=== PATIENT | female | born 1980 | race Caucasian/White ===

== ENCOUNTER 2018-02-02 15:54 | Inpatient (IN) | payer MEDICAID, OTHER ==
[2018-02-02] VITALS (40 sets, daily range): BP systolic 139–184; BP diastolic 87–115; PULSE 68–81; RESP 16–18; TEMP 97.7; O2SAT 98–100
[~2018-02-02 15:54] MED LIST: OXYC-360 PO; PREN0.01 PO
[2018-02-02] MEDS ORDERED: LABETALOL HCL 100 MG/20 ML VIAL ONE (16:35)
[2018-02-02] MEDS: LACTATED RINGER'S 1000 ML INJ 1,000 ML IV SCH (16:42)
[2018-02-02] MEDS ORDERED: CALCIUM GLUCONATE 10% 1 GM/10 ML VIAL IV PUSH PRN (16:45)
[2018-02-02] MEDS: BETAMETHASONE SOD PHOS/ACETATE SUSP 30 MG/5 ML VIAL IM SCH ×2 (16:45→17:50)
[2018-02-02] MEDS ORDERED: LABETALOL HCL 100 MG/20 ML VIAL IV PUSH PRN ×3 (16:45→17:15)
[2018-02-02] MEDS ORDERED: ONDANSETRON HCL 4 MG/2 ML VIAL IV ONE (16:45)
[2018-02-02] MEDS ORDERED: ACETAMINOPHEN 325 MG TAB PO ONE (16:45)
[2018-02-02] MEDS ORDERED: ZOLPIDEM TARTRATE 5 MG TAB PO PRN (16:45)
[2018-02-02] MEDS ORDERED: ONDANSETRON ODT 4 MG TAB PO PRN (16:45)
[2018-02-02] MEDS ORDERED: MAGNESIUM SULFATE 4 GM PREMIX 100 ML IV ONE (16:45)
[2018-02-02] MEDS ORDERED: SODIUM CHLORIDE 0.9% FLUSH 10 ML FLUSH IV FLUSH PRN ×2 (16:45)
[2018-02-02] MEDS ORDERED: LABETALOL HCL 200 MG TAB PO SCH (17:00)
--- NOTE | 2018-02-02 17:02 | PD ---
HPI Chief Complaint Sent here from the office Date Seen: February 02, 2018 Time Seen: 16:57 Travel History International Travel<30 Days: No Contact w/Intl Traveler<30Days: No Known Affected Area: No History of Present Illness HPI Patient is a 37-year-old who is at 27 weeks gestation who comes here after a phone call from the office communicated and abnormal lab results that she had drawn on Monday. Patient gives a history of a first that was affected with IUGR and preeclampsia resulting in a section. Second was fairly uncomplicated except for an undefined history of a possible TIA however patient was never placed on blood thinners or Lovenox and does not remember getting an MRI or CT scan of the head. Patient has had an uncomplicated except for hypertension that began approximately 1-1/2 weeks ago it was initially detected at her work with a blood pressure of 142/96 and then a visit to the office where her blood pressure improved but was given blood work to complete. Patient states she has had a headache on and off but nothing consistent and denies abdominal pain vaginal discharge vaginal bleeding or contractions. Weeks Gestation: 27 Para: 2 : 3 Last Menstrual Period: February 02, 2018 (May 04, 2018) History Past Medical History Narrative Medical See HPI Obstetric History Obstetric History section 2 Past Surgical History Narrative Surgical section Family History Family History: Negative Social History Narrative Social History Works as a teacher private Alcohol Use: No Tobacco Use: No Substance Abuse: No Allergies-Medications (Allergen,Severity, Reaction): Coded Allergies: Sulfa (Sulfonamide Antibiotics) (Unverified Allergy, Severe, MIGRAINES, ) Home Meds Reported Medications Oxycodone/Acetaminophen (Percocet) 5 Mg/325 Mg Tab, 1 TAB PO Q4H Y, #30 TAB FOR PAIN 09/15/ Multivit/Min/Fol Ac/Iron/Pren ( Vit ( Plus)) Tab, 1 TAB PO DAILY 02/09/10 Review of Systems Except as stated in HPI: all other systems reviewed are Neg Physical Exam Vital Signs Date Time Temp Pulse Resp B/P (MAP) Pulse Ox O2 Delivery O2 Flow Rate FiO2 02/02/18 16:45 97.7 02/02/18 16:35 75 184/115 (138) Narrative GENERAL: Well-nourished, well-developed patient. SKIN: Warm and dry. HEAD: Normocephalic and atraumatic. EYES: No scleral icterus. No injection or drainage. ENT: No nasal drainage noted. Mucous membranes pink. Airway patent. NECK: Supple, trachea midline. No JVD. CARDIOVASCULAR: Regular rate and rhythm without murmurs, gallops, or rubs. RESPIRATORY: Breath sounds equal bilaterally. No accessory muscle use. ABDOMEN/GI: Abdomen soft, non-tender, bowel sounds present, no rebound, no guarding Gravid to [-26] weeks size Fundal Height: [-] GENITOURINARY: Deferred External Genitalia: intact and normal in appearance BUS glands: [-] Cervix: [-] Dilatation: [-] Effacement: [-] Station: [-] Presentation: [-] Membranes: [intact or ruptured] Uterine Contractions: [-] FHT's: Category: [-] 1 Baseline: [-] 140 Reactive: [-] Moderate Variability: [-] Moderate Decels: [-] Absent EXTREMITIES: No cyanosis or edema. BACK: Nontender without obvious deformity. No CVA tenderness. NEUROLOGICAL: Awake and alert. Motor and sensory grossly within normal limits. Five out of 5 muscle strength in all muscle groups. Normal speech. Data Data Vital Signs Reviewed: Yes Orders Orders Labetalol Inj (Trandate Inj) (02/02/18 16:35) Vital Signs (Adult) .ON ADMISSION (02/02/18 16:36) ^ Labor Status (02/02/18 16:36) ^ Non Stress Test (02/02/18 16:36) Cbc No Diff, Includes Plts (02/02/18 16:36) Comprehensive Metabolic Panel (02/02/18 16:36) Uric Acid (02/02/18 16:36) Betamethasone Inj ([place]elestone Soluspan In (02/02/18 16:45) Acetaminophen (Tylenol) (02/02/18 16:45) Ondansetron Inj (Zofran Inj) (02/02/18 16:45) Us Ob Bpp Wo Nst (02/02/18 16:36) Drug Screen, Random Urine (02/02/18 16:36) Protein Creat Ratio, Random Ur (02/02/18 16:36) Intake + Output Q1H (02/02/18 16:42) Notify Parameters (02/02/18 16:42) Heart CONTINUOUS (02/02/18 16:42) Urinary Catheter Management CALISTA.Q8H (02/02/18 16:42) ^ Check Deep Tendon Reflexes Q1H (02/02/18 16:42) Diet Npo (02/02/18 Dinner) Lactated Ringer's 1000 Ml Inj (Lr 1000 M (02/02/18 16:42) Sodium Chloride 0.9% Flush (Ns Flush) (02/02/18 16:45) Sodium Chloride 0.9% Flush (Ns Flush) (02/02/18 21:00) Magnesium Sulfate 40 Gm Premix (Magnesiu (02/02/18 16:42) Labetalol Inj (Trandate Inj) (02/02/18 16:45) Labetalol Inj (Trandate Inj) (02/02/18 17:00) Labetalol Inj (Trandate Inj) (02/02/18 17:15) Calcium Gluconate Inj (Calcium Gluconate (02/02/18 16:45) Magnesium Sulfate 4 Gm Premix (Magnesium (02/02/18 16:45) Ob (2e) Additional Admit Info (02/02/18 16:54) [facility] Medical Record Reviewed: Yes Plan 37-year-old who is at 27 weeks gestation with hypertension and Blood work was ordered, ultrasound for EFW Labetalol 20 mg IV was given as well as magnesium sulfate 4 g and then 2 g/h Admission for workup of hypertension Diagnosis Diagnosis: Primary Impression: 27 weeks gestation of Additional Impressions: Hypertension affecting in second trimester History of pre-eclampsia in prior , currently in second trimester History of intrauterine growth restriction in prior , currently in second trimester Bee Guajardo MD February 02, 2018 17:02
[2018-02-02] MEDS: MAGNESIUM SULFATE 40 GM PREMIX 1,000 ML IV SCH (17:03)
[2018-02-02 17:04] LABS: HEMATOCRIT 32.7 % (35.0-46.0); HEMOGLOBIN 10.9 GM/DL (11.6-15.3); MEAN CELL VOLUME 81.9 FL (80.0-100.0); MEAN CORPUSCULAR HEMOGLOBIN 27.5 PG (27.0-34.0); MEAN CORPUSCULAR HGB CONC 33.5 % (32.0-36.0); MEAN PLATELET VOLUME 9.4 FL (7.0-11.0); PLATELET COUNT 202 TH/MM3 (150-450); RED BLOOD COUNT 3.99 MIL/MM3 (4.00-5.30); RED CELL DISTRIBUTION WIDTH 15.3 % (11.6-17.2)
[2018-02-02 17:33] LABS: ALBUMIN 2.9 GM/DL (3.4-5.0); ALT (GPT) 24 U/L (10-53); AST (GOT) 21 U/L (15-37); BICARBONATE 20.3 MEQ/L (21.0-32.0); BLOOD UREA NITROGEN 10 MG/DL (7-18); CALCIUM 8.8 MG/DL (8.5-10.1); CHLORIDE 105 MEQ/L (98-107); CREATININE 0.64 MG/DL (0.50-1.00); GLOMERULAR FILTRATION RATE 105 ML/MIN (>89); GLUCOSE,RANDOM 70 MG/DL (74-106); SODIUM (NA) 136 MEQ/L (136-145)
[2018-02-02 17:36] LABS: ALKALINE PHOSPHATASE 76 U/L (45-117); TOTAL BILIRUBIN ADULT 0.2 MG/DL (0.2-1.0); TOTAL PROTEIN 6.8 GM/DL (6.4-8.2)
[2018-02-02] MEDS: LABETALOL HCL 200 MG TAB PO SCH (17:50)
--- NOTE | 2018-02-02 18:52 | HHI.PR ---
SENIOR ACCOUNT MANAGER Note Note -Background information: Patient presented as a triage for reportedly elevated blood pressures at home, she had severe range blood pressures, hypertensive protocol was activated by the OB hospitalist, patient received IV labetalol prior to my assessment. S: Patient feeling better, denies headache, visual changes, epigastric pain or right upper quadrant pain. Denies contractions, leakage of fluid, endorses movement. O: VS: BP current: 153/93. BP range since presentation: 151-172/92-107 Exam: deferred Lungs clear to auscultation bilaterally Heart regular rate and rhythm Extremities: 1+ edema bilaterally, no clonus, DTRs 1-2+. FHTs: 120s, moderate variability, accelerations, no decelerations TOCO: No contractions A/P 37 yo at 27w0d by L (JAYSON 05/04/18) admitted for preeclampsia with severe features 1. IUP: Category 1 tracing, continuous monitoring while on mag, likely stable for BID after. -Cephalic by ultrasound, GBS pending. - EFW today (02/02/18) = 853g (7.4%) AC 8.2%, 04/25 BPP, UA dop WNL, Fundal, post left placenta. VELMA 13cm, Cephalic. - Needs 1 hour completed after BMZ effect - s/p BMZ #1, repeat in 24hrs for FLM. - FOB named Yossi. 2. Preeclampsia with severe features: Based on severe range blood pressures and P:C of 23.0. - HELLP labs WNL other than slight anemia, repeat HELLP labs in AM, if stable then 1-2x/week. Started 24hr urine protein, pt has no baseline for comparison - Continue mag x 24hrs for seizure ppx and also for neuroprotection - Strict I/Os - Discussed with patient that my recommendation would be for admission for the duration of her given the severity of her preeclampsia in the early onset for close observation, testing. [place] goal is 34 weeks but discussed with her that this is unlikely, aware of the morbidity associated with prematurity, I have consulted a fitter/welder to further discuss this with the patient. Aware that if patient develops a possible need for delivery earlier than 20 weeks there is a potential she will need to be transferred to a higher level NICU facility. 3. growth restriction: Diagnosed today, likely due to preeclampsia. Will be for once to twice weekly UA Dopplers and testing. Consulted MFM, they will see patient next week 4. Advanced maternal age: NIPS within normal limits normal anatomy 5. History of 2: Patient will be for repeat - 2009: 41w for IUGR and likely preeclampsia from her history - 2013: 39w 6. h/o TIA?: In 2012 around her third trimester had an episode of aphasia and was told she may have had a TIA, was on aspirin following, has not been taking aspirin this . She denies any formal workup Monty Dhillon MD February 02, 2018 18:52
[2018-02-02] MEDS ORDERED: LABETALOL HCL 100 MG/20 ML VIAL IV PRN ×4 (19:00)
[2018-02-02] MEDS: SODIUM CHLORIDE 0.9% FLUSH 10 ML FLUSH IV FLUSH SCH (21:00)
[2018-02-02] MEDS ORDERED: SODIUM CHLORIDE 0.9% FLUSH 10 ML FLUSH IV FLUSH SCH (21:00)
[2018-02-03] VITALS (152 sets, daily range): BP systolic 126–150; BP diastolic 81–97; PULSE 66–92; RESP 16–18; TEMP 97.5–98.2
[2018-02-03] MEDS: LABETALOL HCL 200 MG TAB PO SCH ×2 (05:05→17:03)
[2018-02-03] MEDS: LACTATED RINGER'S 1000 ML INJ 1,000 ML IV SCH ×3 (05:06→18:24)
[2018-02-03] MEDS: ACETAMINOPHEN 325 MG TAB PO PRN ×2 (05:14→13:58)
[2018-02-03 05:56] LABS: AUTOMATED NEUTROPHIL # 10.5 TH/MM3 (1.8-7.7); BASOPHIL % 0.2 % (0.0-2.0); HEMATOCRIT 32.9 % (35.0-46.0); HEMOGLOBIN 10.8 GM/DL (11.6-15.3); LYMPH % 7.9 % (9.0-44.0); LYMPHOCYTE # 0.9 TH/MM3 (1.0-4.8); MEAN CELL VOLUME 83.1 FL (80.0-100.0); MEAN CORPUSCULAR HEMOGLOBIN 27.4 PG (27.0-34.0); MEAN CORPUSCULAR HGB CONC 32.9 % (32.0-36.0); MEAN PLATELET VOLUME 8.9 FL (7.0-11.0); MONO % 1.4 % (0.0-8.0); MONOCYTE # 0.2 TH/MM3 (0-0.9); NEUT % 90.5 % (16.0-70.0); PLATELET COUNT 195 TH/MM3 (150-450); RED BLOOD COUNT 3.96 MIL/MM3 (4.00-5.30); RED CELL DISTRIBUTION WIDTH 15.4 % (11.6-17.2); WHITE BLOOD COUNT 11.6 TH/MM3 (4.0-11.0)
[2018-02-03 06:34] LABS: ALBUMIN 2.6 GM/DL (3.4-5.0); BICARBONATE 18.5 MEQ/L (21.0-32.0); CALCIUM 7.3 MG/DL (8.5-10.1); CALCIUM-PROTEIN CORRECTED 7.6 MG/DL (8.5-10.1); CREATININE 0.65 MG/DL (0.50-1.00); TOTAL BILIRUBIN ADULT 0.2 MG/DL (0.2-1.0); TOTAL PROTEIN 6.5 GM/DL (6.4-8.2)
--- NOTE | 2018-02-03 07:13 | HHI.PR ---
MOTORCYCLE RIDING INSTRUCTOR Note Note S: dong well, slight headache but gets them if she doesnt drink her AM coffee, no visual changes, epigastric pain or right upper quadrant pain. Denies contractions, leakage of fluid, endorses movement. O: VS: BP range since MN: 126-137/82-91 Exam: Lungs clear to auscultation bilaterally Heart regular rate and rhythm Extremities: 1+ edema bilaterally, no clonus, DTRs 1-2+ FHTs: 120s, moderate variability, no accelerations, no decelerations TOCO: No contractions A/P 37 yo at 27w1d by L/8 (JAYSON 05/04/18) admitted for preeclampsia with severe features 1. IUP: Category 1 tracing, continuous monitoring while on mag, BID after. Allow to eat reg diet now - Cephalic by ultrasound on admission - EFW (02/02/18) = 853g (7.4%) AC 8.2%, 04/25 BPP, UA dop WNL, Fundal, post left placenta. VELMA 13cm, Cephalic. - Needs 1 hour completed after BMZ effect - s/p BMZ #1, #2 today for FLM. 2. Preeclampsia with severe features: Based on severe range blood pressures and P:C of 23.0. - BP normotensive and mild range overnight, no IV meds after presentation needed , continue labetalol 200mg BID. - HELLP labs WNL other than slight anemia, stable this AM, repeat on Monday, if stable then 1-2x/week. Started 24hr urine protein, pt has no baseline for comparison - Continue mag x 24hrs for seizure ppx and also for neuroprotection - Strict I/Os (adequate since admission) - Aware of implications of early onset preeclampsia, ideal goal is 34 weeks but discussed with her that this is unlikely, NICU to see her this AM. If patient develops a possible need for delivery earlier than 28 weeks there is a potential she will need to be transferred to a higher level NICU facility. 3. growth restriction: new dx, highly likely due to preeclampsia. Will be for once to twice weekly UA Dopplers and testing. Consulted MFM, they will see patient next week 4. Advanced maternal age: NIPS WNL, normal AU. 5. History of 2: Patient will be for repeat - 2009: 41w for IUGR and likely preeclampsia from her history - 2013: 39w scheduled repeat 6. h/o TIA?: In 2012 around her third trimester had an episode of aphasia and was told she may have had a TIA, was on aspirin following, has not been taking aspirin this . She denies any formal workup or any residual deficits. 7. GBS positive: likely irrelevant as will be for repeat Monty Dhillon MD February 03, 2018 07:13
[2018-02-03] MEDS: SODIUM CHLORIDE 0.9% FLUSH 10 ML FLUSH IV FLUSH SCH ×2 (08:42→21:00)
[2018-02-03] MEDS: MULTIVIT/MIN/PREN/FOL AC/IRON PRENATAL TAB PO SCH (08:42)
[2018-02-03] MEDS: MAGNESIUM SULFATE 40 GM PREMIX 1,000 ML IV SCH (12:40)
[2018-02-03] MEDS: BETAMETHASONE SOD PHOS/ACETATE SUSP 30 MG/5 ML VIAL IM SCH ×2 (16:45→18:12)
[2018-02-03 19:25] LABS: CREATININE 24 HOUR, URINE 1.21 GM/24HR (0.63-2.50)
[2018-02-04 03:19] VITALS: BP 142/92; PULSE 77; RESP 16; TEMP 98.4
[2018-02-04] MEDS: LABETALOL HCL 200 MG TAB PO SCH (05:06)
[2018-02-04] MEDS: MULTIVIT/MIN/PREN/FOL AC/IRON PRENATAL TAB PO SCH (08:19)
[2018-02-04] MEDS: SODIUM CHLORIDE 0.9% FLUSH 10 ML FLUSH IV FLUSH SCH ×2 (08:19→21:00)
--- NOTE | 2018-02-04 10:09 | HHI.PR ---
COMPUTER ENGINEERING PROFESSOR Note Note S: dong well, no WHITE, no visual changes, epigastric pain or right upper quadrant pain. Denies contractions, leakage of fluid, endorses movement. O: VS: BP range since MN: 142-152/90-66914/82-91 Exam: : deferred Lungs clear to auscultation bilaterally Heart regular rate and rhythm Extremities: 1+ edema bilaterally, no clonus, DTRs 1-2+, SCDs on FHTs: 120s, moderate variability, no accelerations, no decelerations TOCO: No contractions A/P 37 yo at 27w2d by L (JAYSON 05/04/18) admitted for preeclampsia with severe features 1. IUP: Category 1 tracing this AM, BID EFM and [place]. - Cephalic by ultrasound on admission - EFW (02/02/18) = 853g (7.4%) AC 8.2%, 04/25 BPP, UA dop WNL, Fundal, post left placenta. VELMA 13cm, Cephalic. - Needs 1 hour completed after BMZ effect - s/p BMZ #2 (02/04), s/p mag for neuroprotection on arrival, will repeat if moving toward delivery. - s/p NICU consult, aware of possible need to transfer if stable and need to delivery at < 28 weeks. 2. Preeclampsia with severe features: Based on severe range blood pressures and 24hr urine = 2082mg (02/04), have no baseline to compare - BP mild range over night, if consistently >150s systolic will increase meds. Continue labetalol 200mg BID. - HELLP labs WNL other than slight anemia, stable on repeat yesterday, repeat on Monday, if stable then 1-2x/week. - Strict I/Os (adequate since admission) 3. growth restriction: new dx, highly likely due to preeclampsia. Will be for once to twice weekly UA Dopplers and testing. Consulted MFM, they will see patient this comming week. 4. Advanced maternal age: NIPS WNL, normal AU. 5. History of 2: Patient will be for repeat - 2009: 41w for IUGR and likely preeclampsia from her history - 2012: 39w scheduled repeat 6. h/o TIA?: In 2012 around her third trimester had an episode of aphasia and was told she may have had a TIA, was on aspirin following, has not been taking aspirin this . She denies any formal workup or any residual deficits. 7. GBS positive: likely irrelevant as will be for repeat . 8. Desires Sterilization: private insurance. Will sign medicaid papers today in case has medicaid as secondary. Monty Dhillon MD February 04, 2018 10:09
--- NOTE | 2018-02-04 16:14 | HHI.PR ---
FOREPART ROUNDER Note Note Pt update: called by nursing pts blood pressures have been in 150s systolic and now 161 over 80-90s, pt asymptomatic, increased her scheduled labetalol to 400mg BID and asked nursing to retime it form 5p to now, recheck BP in 15 min and if severe will treat and likely collect HELLP labs. Monty Dhillon MD February 04, 2018 16:14
[2018-02-04] MEDS ORDERED: NIFEdipine 10 MG CAP PO PRN ×3 (16:30→17:00)
[2018-02-04] MEDS ORDERED: MAGNESIUM SULFATE 40 GM PREMIX 1,000 ML IV SCH (16:51)
[2018-02-04] MEDS ORDERED: CALCIUM GLUCONATE 10% 1 GM/10 ML VIAL IV PUSH PRN (17:00)
[2018-02-04] MEDS ORDERED: MAGNESIUM SULFATE 4 GM PREMIX 100 ML IV ONE (17:00)
[2018-02-04] MEDS ORDERED: SODIUM CHLORIDE 0.9% FLUSH 10 ML FLUSH IV FLUSH PRN (17:00)
[2018-02-04 17:16] LABS: HEMATOCRIT 28.8 % (35.0-46.0); HEMOGLOBIN 9.7 GM/DL (11.6-15.3); MEAN CORPUSCULAR HGB CONC 33.7 % (32.0-36.0); PLATELET COUNT 193 TH/MM3 (150-450); RED BLOOD COUNT 3.47 MIL/MM3 (4.00-5.30); RED CELL DISTRIBUTION WIDTH 15.7 % (11.6-17.2)
[2018-02-04] MEDS: LACTATED RINGER'S 1000 ML INJ 1,000 ML IV SCH ×2 (17:25→22:02)
[2018-02-04 17:40] LABS: ALBUMIN 2.6 GM/DL (3.4-5.0); BICARBONATE 23.1 MEQ/L (21.0-32.0); CALCIUM 7.3 MG/DL (8.5-10.1); CALCIUM-PROTEIN CORRECTED 7.9 MG/DL (8.5-10.1); CREATININE 0.6 MG/DL (0.50-1.00); TOTAL BILIRUBIN ADULT 0.3 MG/DL (0.2-1.0)
[2018-02-04] MEDS ORDERED: LABETALOL HCL 200 MG TAB PO SCH (18:00)
[2018-02-04] MEDS: CALCIUM CARBONATE 1.25 GM (CA 500 MG) TAB PO SCH (18:38)
[2018-02-04] MEDS ORDERED: SODIUM CHLORIDE 0.9% FLUSH 10 ML FLUSH IV FLUSH SCH (21:00)
[2018-02-04] MEDS: ACETAMINOPHEN 325 MG TAB PO PRN (21:20)
[2018-02-04] MEDS: FERROUS SULFATE 325 MG (65 MG ELEMENTAL IRON) TAB PO SCH (21:20)
[2018-02-04] MEDS ORDERED: ACETAMIN 325 MG/BUTALBITAL 50 MG/CAFFEINE 40 MG TAB PO ONE (23:45)
[2018-02-05] MEDS ORDERED: LABETALOL HCL 200 MG TAB PO SCH (04:00)
[2018-02-05 05:55] LABS: HEMATOCRIT 27.5 % (35.0-46.0); HEMOGLOBIN 9.2 GM/DL (11.6-15.3); MEAN CELL VOLUME 83.8 FL (80.0-100.0); MEAN CORPUSCULAR HEMOGLOBIN 28.1 PG (27.0-34.0); MEAN CORPUSCULAR HGB CONC 33.5 % (32.0-36.0); MEAN PLATELET VOLUME 8.8 FL (7.0-11.0); PLATELET COUNT 170 TH/MM3 (150-450); RED BLOOD COUNT 3.29 MIL/MM3 (4.00-5.30); RED CELL DISTRIBUTION WIDTH 15.4 % (11.6-17.2); WHITE BLOOD COUNT 10.1 TH/MM3 (4.0-11.0)
[2018-02-05] MEDS: LACTATED RINGER'S 1000 ML INJ 1,000 ML IV SCH (06:11)
[2018-02-05 06:23] LABS: ALBUMIN 2.4 GM/DL (3.4-5.0); CALCIUM 6.8 MG/DL (8.5-10.1); CALCIUM-PROTEIN CORRECTED 7.6 MG/DL (8.5-10.1); CREATININE 0.58 MG/DL (0.50-1.00); TOTAL BILIRUBIN ADULT 0.3 MG/DL (0.2-1.0); TOTAL PROTEIN 5.6 GM/DL (6.4-8.2)
--- NOTE | 2018-02-05 08:28 | PD.OB.ANTE ---
Subjective Interval History 27 3/7 weeks EGA and 845 gm on Monday (IUGR) with normal dopplers and fluid. on labatelol 400 mg BID and 140's /80's at this time on 1 gm Magnesium infusion for seizure prophylaxsis. Platelets and Hgb trending gradually down (platelets now 170K) No headache, nausea or vomiting or RUQT this morning strip fairly flat on Magnesium prior section x 2 history or IUGR with first and a questionable TIA prior to second which was term and AGA Was supposed to be on baby aspirin but describes confusion about whether she was to be taking it. discussed with NICU and does not meet criteria of 28 weeks or 1000 gm. WIll repeat weight and fluid today order serum haptoglobin repeat CBC with platelets and LFTs Unless transportation logistics internship comfortable with keeping, we will transfer to [facility]. Objective Lab & Micro Results Test 02/04/18 16:50 02/04/18 23:30 02/05/18 05:32 White Blood Count 14.0 TH/MM3 10.1 TH/MM3 Red Blood Count 3.47 MIL/MM3 3.29 MIL/MM3 Hemoglobin 9.7 GM/DL 9.2 GM/DL Hematocrit 28.8 % 27.5 % Mean Corpuscular Volume 83.0 FL 83.8 FL Mean Corpuscular Hemoglobin 28.0 PG 28.1 PG Mean Corpuscular Hemoglobin Concent 33.7 % 33.5 % Red Cell Distribution Width 15.7 % 15.4 % Platelet Count 193 TH/MM3 170 TH/MM3 Mean Platelet Volume 9.0 FL 8.8 FL Blood Urea Nitrogen 13 MG/DL 11 MG/DL Creatinine 0.60 MG/DL 0.58 MG/DL Random Glucose 96 MG/DL 94 MG/DL Total Protein 6.0 GM/DL 5.6 GM/DL Albumin 2.6 GM/DL 2.4 GM/DL Calcium Level 7.3 MG/DL 6.8 MG/DL Alkaline Phosphatase 66 U/L 61 U/L Aspartate Amino Transf (AST/SGOT) 21 U/L 18 U/L Alanine Aminotransferase (ALT/SGPT) 30 U/L 28 U/L Total Bilirubin 0.3 MG/DL 0.3 MG/DL Sodium Level 136 MEQ/L 139 MEQ/L Potassium Level 4.1 MEQ/L 4.0 MEQ/L Chloride Level 103 MEQ/L 106 MEQ/L Carbon Dioxide Level 23.1 MEQ/L 24.0 MEQ/L Anion Gap 10 MEQ/L 9 MEQ/L Estimat Glomerular Filtration Rate 113 ML/MIN 118 ML/MIN Protein Corrected Calcium 7.9 MG/DL 7.6 MG/DL Magnesium Level 5.5 MG/DL Physical Exam GENERAL: Well-nourished, well-developed patient. CARDIOVASCULAR: Regular rate and rhythm without murmurs, gallops, or rubs. RESPIRATORY: Breath sounds equal bilaterally. No accessory muscle use. ABDOMEN/GI: Abdomen soft, non-tender. Fundus: [-] GENITOURINARY: External Genitalia: intact and normal in appearance Cervix: [-] Dilatation: [-] Effacement: [-] Station: [-] Presentation: [-] Membranes: [-] Uterine Contractions: [-] FHT's: Category: [-] Baseline: [-] Reactive: [-] Variability: [-] Decels: [-] EXTREMITIES: No cyanosis or edema, non-tender, without signs of DVT. Sierra Condon MD February 05, 2018 08:28
[2018-02-05] MEDS: SODIUM CHLORIDE 0.9% FLUSH 10 ML FLUSH IV FLUSH SCH (09:00)
[2018-02-05] MEDS: FERROUS SULFATE 325 MG (65 MG ELEMENTAL IRON) TAB PO SCH (09:58)
[2018-02-05] MEDS: MULTIVIT/MIN/PREN/FOL AC/IRON PRENATAL TAB PO SCH (09:58)
[2018-02-05] MEDS: CALCIUM CARBONATE 1.25 GM (CA 500 MG) TAB PO SCH (09:58)
[2018-02-05 11:58] LABS: HEMATOCRIT 28.9 % (35.0-46.0); HEMOGLOBIN 9.8 GM/DL (11.6-15.3); MEAN CELL VOLUME 83.7 FL (80.0-100.0); MEAN CORPUSCULAR HEMOGLOBIN 28.3 PG (27.0-34.0); MEAN CORPUSCULAR HGB CONC 33.8 % (32.0-36.0); MEAN PLATELET VOLUME 8.5 FL (7.0-11.0); PLATELET COUNT 180 TH/MM3 (150-450); RED BLOOD COUNT 3.46 MIL/MM3 (4.00-5.30); RED CELL DISTRIBUTION WIDTH 15.8 % (11.6-17.2); WHITE BLOOD COUNT 9.7 TH/MM3 (4.0-11.0)
[2018-02-05 12:29] LABS: ALBUMIN 2.5 GM/DL (3.4-5.0); DIRECT BILIRUBIN ADULT 0.1 MG/DL (0.0-0.2)
[2018-02-05 12:31] LABS: INDIRECT BILIRUBIN 0.2 MG/DL (0.0-0.8); TOTAL BILIRUBIN ADULT 0.3 MG/DL (0.2-1.0); TOTAL PROTEIN 5.9 GM/DL (6.4-8.2)
== END 2018-02-05 13:27 | disposition short-term general hospital (02) | DRG 775 ==
LOC: HOBED 15:54 → H2EA 16:59
PROVIDERS: ADMIT Obstetrics & Gynecology; ATTEND Obstetrics & Gynecology
DX: O14.14 Severe pre-eclampsia complicating childbirth (principal); O99.824 Streptococcus B carrier state complicating childbirth; O36.5920 Maternal care for other known or suspected poor fetal growth, second trimester, not applicable or unspecified; O99.012 Anemia complicating pregnancy, second trimester; O34.219 Maternal care for unspecified type scar from previous cesarean delivery; O09.522 Supervision of elderly multigravida, second trimester; Z3A.27 27 weeks gestation of pregnancy; Z86.73 Personal history of transient ischemic attack (TIA), and cerebral infarction without residual deficits; Z88.2 Allergy status to sulfonamides
CPT/HCPCS: 76816; 76819; 76820; 80053; 80076; 80307; 82570; 83010; 83735; 84156; 84157; 84550; 85025; 85027; 86850; 86900; 86901; 86920; 87150; 96374; G0481; J0702; J3475; J7120